=== PATIENT | female | born 1995 | race Caucasian/White ===

== ENCOUNTER 2021-07-25 08:04 | Outpatient (REF) | payer OTHER, SELFPAY ==
[2021-07-25 08:40] LABS: COVID-19 Test Negative (Negative)
== END 2021-07-25 08:05 | disposition home or self-care (01) ==
LOC: HO.LAB 08:04
PROVIDERS: PCP Pediatrics; Visit Provider Internal Medicine
DX: Z20.822 Contact with and (suspected) exposure to COVID-19 (principal)
CPT/HCPCS: 36415; 87635; C9803

== ENCOUNTER 2021-10-16 12:31 | Outpatient (REF) | payer OTHER, SELFPAY ==
[2021-10-17 08:13] LABS: COVID-19 Test Negative (Negative)
== END 2021-10-16 12:32 | disposition home or self-care (01) ==
LOC: HO.LAB 12:31
PROVIDERS: PCP Pediatrics; Visit Provider Internal Medicine
DX: Z20.822 Contact with and (suspected) exposure to COVID-19 (principal)
CPT/HCPCS: 36415; 87635; C9803